=== PATIENT | male | born 2000 | race Caucasian/White ===

== ENCOUNTER 2018-03-26 19:54 | Emergency (ER) | payer OTHER ==
[~2018-03-26] VITALS: Ht 190.5 cm; Wt 97.7 kg
[2018-03-26 19:58] VITALS: BP 168/77; TEMP 98
[2018-03-26 20:15] LABS: BASO % 0.3 % (0.0-2.0); EOS % 0.3 % (0-4.0); GRAN # 4.7 (1.4-6.5); GRAN % 69.7 % (42.2-75.2); HEMATOCRIT 42.1 % (36.0-47.0); HEMOGLOBIN 14.8 g/dl (12.5-16.1); LYMPH # 1.6 (1.2-3.4); MEAN CELL VOLUME 84 fl (80.0-95.0); MEAN CORPUSCULAR HEMOGLOBIN 30 pg (26.0-32.0); MEAN CORPUSCULAR HGB CONC 35 g/dl (33.0-37.0); MEAN PLATELET VOLUME 10.1 fl (7.4-10.4); MONO # 0.4 (0.1-0.6); MONO % 6.4 % (1.7-9.3); PLATELET COUNT 205 K/mm3 (130-400); RED BLOOD COUNT 4.99 M/mm3 (4.20-5.60); REDCELL DISTRIBUTION WIDTH-CV 11.6 % (11.5-14.5)
[2018-03-26 20:28] LABS: ALANINE AMINOTRANSFERASE 19 U/L (21-72); ALBUMIN 4.8 gm/dL (3.5-5.0); ALKALINE PHOSPHATASE 73 U/L (50-136); ANION GAP 16 mmol/L (7-16); AST,SGOT 19 U/L (15-37); BILIRUBIN,TOTAL 0.7 mg/dL (0.0-1.0); BLOOD UREA NITROGEN 13 mg/dL (9-20); CALCIUM 9.9 mg/dL (8.4-10.2); CARBON DIOXIDE 22 mmol/L (22-30); CHLORIDE 102 mmol/L (98-107); CREATININE, serum 1.07 mg/dL (0.66-1.25); GLUCOSE 129 mg/dL (74-106); POTASSIUM 3.5 mmol/L (3.4-5.0); SODIUM 140 mmol/L (137-145); TOTAL PROTEIN 8.2 gm/dL (6.4-8.2)
[2018-03-26 20:30] LABS: C-REACTIVE PROTEIN < 0.5 mg/dL (0.0-0.9)
[2018-03-26 20:45] LABS: COLLECTION METHOD CLEAN CATCH
[2018-03-26 20:57] LABS: MUCOUS Present /lpf; PH 7 (5-8); SQUAMOUS EPITHELIAL 0-2 /hpf; URINE APPEARANCE Cloudy; URINE BACTERIA Rare /hpf; URINE BILIRUBIN Negative (NEGATIVE); URINE BLOOD 3+ (NEGATIVE); URINE COLOR Yellow; URINE GLUCOSE Negative (NEGATIVE); URINE KETONE 1+ (NEGATIVE); URINE LEUKOCYTE ESTERASE Negative (NEGATIVE); URINE NITRATE Negative (NEGATIVE); URINE PROTEIN(semi-quant) 1+ (NEGATIVE); URINE RBC >50 /hpf
[2018-03-26] MEDS ORDERED: ZOFRAN ODT4 MG PO (22:20)
[2018-03-26] MEDS ORDERED: FLOMAX 0.40.4 MG/CAP PO (22:20)
[2018-03-26] MEDS ORDERED: NORCO 325 MG-51 TAB PO (22:20)
[2018-03-26 22:42] VITALS: PULSE 85
== END 2018-03-26 22:44 | disposition home or self-care (01) ==
LOC: COL.ER 19:54
PROVIDERS: Emergency Medicine
DX: R10.32 Left lower quadrant pain (principal); N20.2 Calculus of kidney with calculus of ureter
CPT/HCPCS: J1885; J2405; J3010; J7030; Q9967